=== PATIENT | male | born 1975 ===

== ENCOUNTER 2021-12-10 08:13 | Day surgery (SDC) | payer BC, MEDICARE ==
[~2021-12-10 08:13] MED LIST: Lactated Ringers 1,000 ML IV SCH; Lidocaine 1%/Sod Bicarbonate in NS 8.4% 1 ML Syringe IDERM PRN; Sodium Chloride 0.9% 10 ML Syringe FLUSH PRN; Sodium Chloride 0.9% 10 ML Syringe FLUSH SCH
[2021-12-10] MEDS ORDERED: Ondansetron 4 MG/2 ML SDV IVPUSH PRN (09:27)
[2021-12-10] MEDS ORDERED: Propofol 200 MG/20 ML SDV ONE ×2 (09:30→10:36)
[2021-12-10] MEDS ORDERED: Lidocaine 1% 5 ML VIAL ONE (09:31)
[2021-12-10] MEDS ORDERED: Midazolam 1 MG/ML 2 ML SDV ONE (09:32)
[2021-12-10 11:23] VITALS: BP 122/82; PULSE 72
== END 2021-12-10 11:25 | disposition home or self-care (01) ==
LOC: JD.SDS 08:13
PROVIDERS: ATTEND Surgery
DX: Z12.11 Encounter for screening for malignant neoplasm of colon (principal); D12.0 Benign neoplasm of cecum; D12.5 Benign neoplasm of sigmoid colon; K57.30 Diverticulosis of large intestine without perforation or abscess without bleeding; I10 Essential (primary) hypertension; K42.9 Umbilical hernia without obstruction or gangrene; E66.9 Obesity, unspecified; Z68.34 Body mass index [BMI] 34.0-34.9, adult; Z87.891 Personal history of nicotine dependence; Z90.49 Acquired absence of other specified parts of digestive tract
CPT/HCPCS: 45380; J2250; J2704; J7120; 00812

== ENCOUNTER 2021-12-12 10:05 | Day surgery (SDC) | payer BC, MEDICARE ==
[2021-12-12] MEDS ORDERED: Rocuronium 50 MG/5 ML Vial ONE (10:53)
[2021-12-12] MEDS ORDERED: Lidocaine 1% 4 ML ONE (10:53)
[2021-12-12] MEDS ORDERED: Midazolam 1 MG/ML 2 ML SDV ONE (10:53)
[2021-12-12] MEDS ORDERED: Propofol 200 MG/20 ML SDV ONE (10:53)
[2021-12-12] MEDS ORDERED: fentaNYL 100 MCG/2 ML SDV ONE (10:54)
[2021-12-12] MEDS ORDERED: Bupivacaine 0.5%/EPINEPHrine 1:200,000 50 ML MDV ONE (10:57)
[2021-12-12] MEDS ORDERED: ceFAZolin 1 GM Vial ONE (11:01)
[2021-12-12] MEDS ORDERED: HYDROmorphone 0.5 MG/0.5 ML Syringe ONE ×2 (11:48→11:51)
[2021-12-12] MEDS ORDERED: Ketorolac 30 MG/ML SDV ONE (11:52)
[2021-12-12] MEDS ORDERED: Ondansetron 4 MG/2 ML SDV ONE (11:52)
[2021-12-12] MEDS ORDERED: fentaNYL 250 MCG/5 ML SDV ONE (11:56)
[2021-12-12] MEDS ORDERED: Lactated Ringers 1,000 ML ONE (11:57)
[2021-12-12] MEDS ORDERED: oxyCODONE 5 MG Tab PO ONE (13:27)
[2021-12-12 14:54] VITALS: BP 139/80; PULSE 70
== END 2021-12-12 14:40 | disposition home or self-care (01) ==
LOC: JD.SDS 10:05
PROVIDERS: ATTEND Surgery
DX: K42.9 Umbilical hernia without obstruction or gangrene (principal); I10 Essential (primary) hypertension; Z79.899 Other long term (current) drug therapy; Z98.890 Other specified postprocedural states; Z87.891 Personal history of nicotine dependence
CPT/HCPCS: 49652; J0690; J1170; J1885; J2250; J2405; J2704; J3010; J3490; J7120; 00790; C1781